=== PATIENT | female | born 1955 | race Two or more races ===

== ENCOUNTER 2022-09-06 05:55 | Day surgery (SDC) | payer OTHER | END 2022-09-06 10:50 | disposition home or self-care (01) | LOC: AMB-ENDOS 05:55 | PROVIDERS: ATTEND Surgery | DX: K57.30 Diverticulosis of large intestine without perforation or abscess without bleeding (principal); K64.8 Other hemorrhoids; Z20.822 Contact with and (suspected) exposure to COVID-19 ==